=== PATIENT | male | born 1945 | race Two or more races ===

== ENCOUNTER 2018-02-17 19:22 | Observation (INO) | payer MEDICARE, OTHER ==
[~2018-02-17] VITALS: Ht 170.2 cm; Wt 68.0 kg
[2018-02-17] MEDS ORDERED: LORazepam 2MG/ML-1ML VIAL IV ONE (20:00)
[2018-02-17 20:30] LABS: Basophils # (auto) 0.1 uL; Basophils % (auto) 0.7 % (0.0-2.0); Eosinophils # (auto) 0.3 uL; Eosinophils % (auto) 3.6 % (0.0-7.0); Hematocrit 38.7 % (41.0-53.0); Hemoglobin 12.9 g/dL (13.5-17.5); Lymphocytes % (auto) 35.9 % (10.0-50.0); Mean Corpuscular Hemoglobin 31.2 pg (28.0-32.0); Mean Corpuscular Hgb Conc. 33.3 g/dL (32.0-36.0); Mean Corpuscular Volume 93.7 fL (80.0-100.0); Monocytes # (auto) 0.5 uL; Monocytes % (auto) 6.6 % (0.0-12.0); Neutrophils # (auto) 4.4 uL; Neutrophils % (auto) 53.2 % (37.0-80.0); Nucleated Red Blood Cells % 0.1 %; Platelet Count (auto) 219 10^3/uL (140-450); Red Blood Cells 4.13 10^6/uL (4.5-5.90); Red Cell Distribution Width 14.2 % (11.8-14.3); White Blood Cell 8.2 10^3/uL (4.4-10.8)
[2018-02-17 20:47] LABS: INR 0.94 (0.9-1.15); Partial Thromboplastin Time 25.7 sec (23.78-33.04); Prothrombin Time 10.1 sec (9.27-12.13)
[2018-02-17 20:52] LABS: Alanine Aminotransferase 18 U/L (16-61); Albumin 3.4 g/dL (3.4-5.0); Alkaline Phosphatase 65 U/L (45-117); Anion Gap 7 (5-15); Aspartate Aminotransferase 17 U/L (15-37); BUN/Creatinine Ratio 13.3; Bilirubin, Total 0.5 mg/dL (0.2-1.0); Blood Urea Nitrogen 15 mg/dL (7-18); Calcium 8.2 mg/dL (8.5-10.1); Carbon Dioxide 23 mmol/L (21-32); Chloride 111 mmol/L (98-107); GFR African American 82 mL/min; GFR Non-African American 67 mL/min; Glucose 98 mg/dL (74-106); Magnesium 2.5 mg/dL (1.6-2.6); Potassium 3.8 mmol/L (3.5-5.1); Sodium 141 mmol/L (136-145); Total Protein 7.7 g/dL (6.4-8.2)
[2018-02-17] MEDS ORDERED: DEXAMETHASONE SOD PHOS 10MG/1ML VIAL INJ IV ONE (22:15)
[2018-02-17 22:50] LABS: Urine Bacteria NONE SEEN /hpf (None Seen); Urine Blood Negative /uL (Negative); Urine Mucus FEW (None Seen); Urine Specific Gravity 1.019 (1.001-1.035); Urine WBC <1 /hpf (0 - 3)
[2018-02-18 01:04] VITALS: BP 105/78
== END 2018-02-18 00:17 | disposition short-term general hospital (02) | DRG 313 ==
LOC: ER 19:22 → OVERFLOW 19:23 → ER 02-18 00:17
PROVIDERS: ADMIT Emergency Medicine; ATTEND Emergency Medicine
DX: R07.89 Other chest pain (principal); M47.892 Other spondylosis, cervical region; M54.17 Radiculopathy, lumbosacral region; D49.6 Neoplasm of unspecified behavior of brain; I70.0 Atherosclerosis of aorta
CPT/HCPCS: 36415; 70450; 71045; 72125; 72131; 80053; 81001; 83735; 83880; 84443; 84484; 85025; 85379; 85610; 85730; 93005; 96374; 96375; 99285; G0378; J1100; J2060

== ENCOUNTER 2018-04-20 16:29 | Inpatient (IN) | payer MEDICARE, OTHER ==
[~2018-04-20] VITALS: Ht 160 cm; Wt 62.2 kg
[2018-04-20] MEDS ORDERED: SODIUM CHLORIDE 0.9% 1,000 ML IV ONE (17:36)
[2018-04-20] MEDS ORDERED: LEVOFLOXACIN 500MG 100 ML IV ONE (17:45)
[2018-04-20 17:52] LABS: Basophils # (auto) 0.1 uL; Basophils % (auto) 0.9 % (0.0-2.0); Eosinophils # (auto) 0 uL; Hemoglobin 11.8 g/dL (13.5-17.5); Lymphocytes % (auto) 7.7 % (10.0-50.0); Mean Corpuscular Hgb Conc. 32.8 g/dL (32.0-36.0); Mean Corpuscular Volume 94.5 fL (80.0-100.0); Monocytes # (auto) 0.3 uL; Monocytes % (auto) 2.4 % (0.0-12.0); Neutrophils # (auto) 11.4 uL; Platelet Count (auto) 214 10^3/uL (140-450); Red Blood Cells 3.81 10^6/uL (4.5-5.90); Red Cell Distribution Width 14.9 % (11.8-14.3); White Blood Cell 12.8 10^3/uL (4.4-10.8)
[2018-04-20 17:55] LABS: Alanine Aminotransferase 57 U/L (16-61); Anion Gap 9 (5-15); Aspartate Aminotransferase 54 U/L (15-37); BUN/Creatinine Ratio 24.6; Blood Urea Nitrogen 17 mg/dL (7-18); Carbon Dioxide 22 mmol/L (21-32); Chloride 111 mmol/L (98-107); GFR African American 144 mL/min; GFR Non-African American 119 mL/min; Glucose 108 mg/dL (74-106); Sodium 142 mmol/L (136-145)
[2018-04-20 18:00] LABS: Alkaline Phosphatase 100 U/L (45-117); Bilirubin, Total 0.4 mg/dL (0.2-1.0); Total Protein 6.6 g/dL (6.4-8.2)
[2018-04-20] MEDS ORDERED: VANCOMYCIN 1GM/250ML 250 ML IV ONE (18:30)
[2018-04-20] MEDS ORDERED: VANCOMYCIN PER PHARMACY 0 MG IV SCH (18:30)
[2018-04-20] MEDS ORDERED: PIPERACILLIN-TAZOB 3.375GM 100 ML IV ONE (18:30)
[2018-04-20] MEDS: SODIUM CHLORIDE 0.9% 1,000 ML IV SCH (18:38)
[2018-04-20] MEDS ORDERED: OSELTAMIVIR 75 MG CAP PO ONE (18:45)
[2018-04-20] MEDS ORDERED: ACETAMINOPHEN 500 MG TAB PO PRN (18:45)
[2018-04-20] MEDS ORDERED: TEMAZEPAM 15 MG CAP PO PRN (18:45)
[2018-04-20] MEDS ORDERED: NITROGLYCERIN 0.4 MG SL TAB SL PRN (18:45)
[2018-04-20] MEDS ORDERED: LORazepam 0.5 MG TAB PO PRN (18:45)
[2018-04-20] MEDS ORDERED: PROMETHAZINE HCL 25 MG/ML 1ML IV PRN (18:45)
[2018-04-20] MEDS ORDERED: LACTULOSE 20Gm/30ML SOLN PO PRN (18:45)
[2018-04-20] MEDS ORDERED: MORPHINE SULFATE 4 MG/ML SYR/VIAL IV PRN ×2 (18:45)
[2018-04-20] MEDS ORDERED: [UNRECOGNIZED DRUG - CODE] PO (18:54)
[2018-04-20] MEDS ORDERED: DEXA4TAB PO (18:54)
[2018-04-20] MEDS ORDERED: SULF400T11 PO (18:54)
[2018-04-20] MEDS ORDERED: TEMO20CA PO (18:54)
[2018-04-20] MEDS ORDERED: PRO10T PO (18:54)
[2018-04-20] MEDS ORDERED: GABA300C10 PO (18:54)
[2018-04-20] MEDS ORDERED: KEP500T PO (18:54)
[2018-04-20] MEDS ORDERED: SULFAMETHOX W/TRIMETH(800/160MG) DS TAB PO SCH ×2 (19:00→22:00)
[2018-04-20 19:49] VITALS: BP 117/75
[2018-04-20 20:59] VITALS: BP 117/75
[2018-04-20 22:00] VITALS: BP 117/75
[2018-04-20] MEDS ORDERED: GABAPENTIN 100 MG CAP PO SCH (22:00)
[2018-04-20] MEDS ORDERED: LEVETIRACETAM 500 MG TAB PO SCH (22:00)
[2018-04-20] MEDS: VANCOMYCIN 1GM/250ML 250 ML IV SCH (23:00)
[2018-04-20] MEDS: GABAPENTIN 300 MG CAP PO SCH (23:26)
[2018-04-20] MEDS: DEXAMETHASONE 4 MG TAB PO SCH (23:27)
[2018-04-20] MEDS: LEVETIRACETAM 500 MG TAB PO SCH (23:27)
[2018-04-21] MEDS: ALBUTEROL SULF 2.5 MG/0.5ML(0.5%) NEB SOLN NEB SCH ×4 (00:09→18:37)
[2018-04-21] MEDS: AZITHROMYCIN 500MG/ 250ML 250 ML IV SCH ×2 (02:00→09:52)
[2018-04-21] MEDS: PIPERACILLIN-TAZOB 3.375GM 100 ML IV SCH ×5 (04:05→23:56)
[2018-04-21 05:25] VITALS: BP 118/78
[2018-04-21 05:44] LABS: Basophils # (auto) 0 uL; Basophils % (auto) 0.4 % (0.0-2.0); Eosinophils # (auto) 0 uL; Hematocrit 35.3 % (41.0-53.0); Hemoglobin 11.8 g/dL (13.5-17.5); Lymphocytes # (auto) 0.4 uL; Lymphocytes % (auto) 3.6 % (10.0-50.0); Mean Corpuscular Hemoglobin 31.7 pg (28.0-32.0); Mean Corpuscular Hgb Conc. 33.3 g/dL (32.0-36.0); Mean Corpuscular Volume 95.2 fL (80.0-100.0); Monocytes # (auto) 0.2 uL; Monocytes % (auto) 1.4 % (0.0-12.0); Neutrophils # (auto) 11.5 uL; Neutrophils % (auto) 94.6 % (37.0-80.0); Platelet Count (auto) 202 10^3/uL (140-450); Red Cell Distribution Width 14.6 % (11.8-14.3); White Blood Cell 12.1 10^3/uL (4.4-10.8)
[2018-04-21 05:59] LABS: Albumin 1.9 g/dL (3.4-5.0); Potassium 3.9 mmol/L (3.5-5.1)
[2018-04-21 06:01] LABS: BUN/Creatinine Ratio 18.8
[2018-04-21 06:03] LABS: Bilirubin, Total 0.4 mg/dL (0.2-1.0); Total Protein 6.2 g/dL (6.4-8.2)
[2018-04-21] MEDS: SODIUM CHLORIDE 0.9% 1,000 ML IV SCH (07:58)
[2018-04-21 08:00] VITALS: BP 108/63
[2018-04-21 09:00] VITALS: BP 108/63
[2018-04-21] MEDS: TEMOZOLOMIDE 20 MG PO SCH (09:52)
[2018-04-21] MEDS: TEMOZOLOMIDE 100 MG PO SCH (09:52)
[2018-04-21] MEDS: PANTOPRAZOLE 40 MG TAB PO SCH (09:53)
[2018-04-21] MEDS: LEVETIRACETAM 500 MG TAB PO SCH ×2 (09:55→21:08)
[2018-04-21] MEDS: DEXAMETHASONE 4 MG TAB PO SCH ×2 (09:55→21:07)
[2018-04-21] MEDS ORDERED: OSELTAMIVIR 75 MG CAP PO SCH (10:00)
[2018-04-21 12:39] VITALS: BP 91/59
[2018-04-21] MEDS: VANCOMYCIN 1GM/250ML 250 ML IV SCH (16:40)
[2018-04-21] MEDS: HYDROcodone-ACET 5/325MG TAB PO PRN (16:48)
[2018-04-21 17:33] VITALS: BP 110/62
[2018-04-21] MEDS: GABAPENTIN 300 MG CAP PO SCH (21:06)
[2018-04-21 22:00] VITALS: BP 123/6
[2018-04-22] MEDS: ALBUTEROL SULF 2.5 MG/0.5ML(0.5%) NEB SOLN NEB SCH ×5 (00:22→23:32)
[2018-04-22 04:45] VITALS: BP 103/60
[2018-04-22] MEDS: PIPERACILLIN-TAZOB 3.375GM 100 ML IV SCH ×2 (05:48→14:18)
[2018-04-22] MEDS: HYDROcodone-ACET 5/325MG TAB PO PRN (05:54)
[2018-04-22 08:00] VITALS: BP 115/74
[2018-04-22 09:06] VITALS: BP 115/74
[2018-04-22] MEDS: DEXAMETHASONE 4 MG TAB PO SCH ×2 (09:33→21:48)
[2018-04-22] MEDS: TEMOZOLOMIDE 100 MG PO SCH (09:33)
[2018-04-22] MEDS: LEVETIRACETAM 500 MG TAB PO SCH ×2 (09:33→21:48)
[2018-04-22] MEDS: TEMOZOLOMIDE 20 MG PO SCH (09:33)
[2018-04-22] MEDS: PANTOPRAZOLE 40 MG TAB PO SCH (09:33)
[2018-04-22] MEDS: VANCOMYCIN 1GM/250ML 250 ML IV SCH (11:38)
[2018-04-22 14:04] VITALS: BP 109/54
[2018-04-22] MEDS ORDERED: LEVOFLOXACIN 750MG 150 ML IV ONE (16:00)
[2018-04-22 17:05] VITALS: BP 112/57
[2018-04-22 21:40] VITALS: BP 132/79
[2018-04-22] MEDS: GABAPENTIN 300 MG CAP PO SCH (21:48)
[2018-04-23 05:03] VITALS: BP 111/62
[2018-04-23] MEDS: ALBUTEROL SULF 2.5 MG/0.5ML(0.5%) NEB SOLN NEB SCH ×3 (06:00→19:40)
[2018-04-23 06:18] LABS: Basophils # (auto) 0 uL; Basophils % (auto) 0.1 % (0.0-2.0); Eosinophils # (auto) 0 uL; Hematocrit 35.9 % (41.0-53.0); Hemoglobin 11.8 g/dL (13.5-17.5); Lymphocytes # (auto) 0.6 uL; Lymphocytes % (auto) 4.3 % (10.0-50.0); Mean Corpuscular Hemoglobin 31.2 pg (28.0-32.0); Mean Corpuscular Hgb Conc. 32.9 g/dL (32.0-36.0); Monocytes # (auto) 0.4 uL; Monocytes % (auto) 2.5 % (0.0-12.0); Neutrophils # (auto) 13.5 uL; Neutrophils % (auto) 93.1 % (37.0-80.0); Platelet Count (auto) 235 10^3/uL (140-450); Red Blood Cells 3.77 10^6/uL (4.5-5.90); Red Cell Distribution Width 14.7 % (11.8-14.3); White Blood Cell 14.5 10^3/uL (4.4-10.8)
[2018-04-23 07:33] VITALS: BP 116/71
[2018-04-23 08:00] VITALS: BP 116/71
[2018-04-23] MEDS: LEVOFLOXACIN 750MG 150 ML IV SCH (09:40)
[2018-04-23] MEDS: DEXAMETHASONE 4 MG TAB PO SCH ×2 (09:40→23:04)
[2018-04-23] MEDS: PANTOPRAZOLE 40 MG TAB PO SCH (09:40)
[2018-04-23] MEDS: LEVETIRACETAM 500 MG TAB PO SCH ×2 (09:40→23:05)
[2018-04-23] MEDS ORDERED: VANCOMYCIN 1,250 MG in D5W 5% 250 ML IV SCH (11:00)
[2018-04-23] MEDS ORDERED: HYDROcodone-ACET 5/325MG TAB PO PRN (11:15)
[2018-04-23 11:32] VITALS: BP 118/76
[2018-04-23 16:50] VITALS: BP 106/63
[2018-04-23 22:00] VITALS: BP 113/72
[2018-04-23] MEDS: GABAPENTIN 300 MG CAP PO SCH (23:05)
[2018-04-23] MEDS: VANCOMYCIN 1,250 MG in SODIUM CHL 0.9% 250 ML IV SCH (23:05)
[2018-04-24] MEDS: ALBUTEROL SULF 2.5 MG/0.5ML(0.5%) NEB SOLN NEB SCH ×4 (00:01→18:49)
[2018-04-24 05:44] VITALS: BP 94/63
[2018-04-24 06:20] LABS: Hematocrit 36.4 % (41.0-53.0); Hemoglobin 12.1 g/dL (13.5-17.5); Mean Corpuscular Hemoglobin 31.5 pg (28.0-32.0); Mean Corpuscular Hgb Conc. 33.3 g/dL (32.0-36.0); Mean Corpuscular Volume 94.6 fL (80.0-100.0); Platelet Count (auto) 246 10^3/uL (140-450); Red Blood Cells 3.84 10^6/uL (4.5-5.90); Red Cell Distribution Width 15.1 % (11.8-14.3); White Blood Cell 13.5 10^3/uL (4.4-10.8)
[2018-04-24 06:32] LABS: Potassium 4.1 mmol/L (3.5-5.1)
[2018-04-24 06:37] LABS: BUN/Creatinine Ratio 27.5; Bilirubin, Total 0.3 mg/dL (0.2-1.0); Calcium 8.1 mg/dL (8.5-10.1); Total Protein 5.8 g/dL (6.4-8.2)
[2018-04-24 07:08] LABS: Basophils % (manual) 0 (0.0-2.0); Blast Cells 0; Eosinophils % (manual) 0 (0-7); Metamyelocytes % 0; Monocytes % (manual) 0 (0-12); Myelocytes % 0; Promyelocytes % 0; Reactive Lymphocytes 0
[2018-04-24 08:06] LABS: Band Neutrophils % (manual) 1; Lymphocytes % (manual) 3 (10.0-50.0)
[2018-04-24 08:18] VITALS: BP 120/76
[2018-04-24 09:01] VITALS: BP 120/76
[2018-04-24] MEDS: LEVOFLOXACIN 750MG 150 ML IV SCH (09:32)
[2018-04-24] MEDS: LEVETIRACETAM 500 MG TAB PO SCH ×2 (09:32→20:58)
[2018-04-24] MEDS: DEXAMETHASONE 4 MG TAB PO SCH ×2 (09:32→20:58)
[2018-04-24] MEDS: PANTOPRAZOLE 40 MG TAB PO SCH (09:33)
[2018-04-24] MEDS: VANCOMYCIN 1,250 MG in SODIUM CHL 0.9% 250 ML IV SCH ×2 (11:10→22:15)
[2018-04-24] MEDS: Glucerna Carbsteady SHAKE Vanilla 8oz PO SCH ×2 (12:00→18:00)
[2018-04-24 12:29] VITALS: BP 99/61
[2018-04-24 16:41] VITALS: BP 106/79
[2018-04-24] MEDS: Pro-Stat SF 30ml Vanilla PO SCH (18:00)
[2018-04-24] MEDS: GABAPENTIN 300 MG CAP PO SCH (20:59)
[2018-04-24 22:00] VITALS: BP 99/65
[2018-04-25] MEDS: ALBUTEROL SULF 2.5 MG/0.5ML(0.5%) NEB SOLN NEB SCH ×4 (00:25→18:58)
[2018-04-25 05:00] VITALS: BP 93/58
[2018-04-25 06:00] LABS: Hematocrit 39.2 % (41.0-53.0); Hemoglobin 12.8 g/dL (13.5-17.5); Mean Corpuscular Hemoglobin 30.7 pg (28.0-32.0); Mean Corpuscular Hgb Conc. 32.6 g/dL (32.0-36.0); Mean Corpuscular Volume 94.3 fL (80.0-100.0); Platelet Count (auto) 294 10^3/uL (140-450); Red Blood Cells 4.16 10^6/uL (4.5-5.90); Red Cell Distribution Width 15.3 % (11.8-14.3); White Blood Cell 13.1 10^3/uL (4.4-10.8)
[2018-04-25 06:22] LABS: Blast Cells 0; Eosinophils % (manual) 0 (0-7); Myelocytes % 0; Promyelocytes % 0; Reactive Lymphocytes 0
[2018-04-25 06:27] LABS: Albumin 2.1 g/dL (3.4-5.0); Calcium 8.2 mg/dL (8.5-10.1); Potassium 4.3 mmol/L (3.5-5.1)
[2018-04-25 06:30] LABS: BUN/Creatinine Ratio 28.8; Bilirubin, Total 0.4 mg/dL (0.2-1.0); Total Protein 5.9 g/dL (6.4-8.2)
[2018-04-25 07:49] LABS: Band Neutrophils % (manual) 2; Basophils % (manual) 1 (0.0-2.0); Lymphocytes % (manual) 6 (10.0-50.0); Metamyelocytes % 2; Monocytes % (manual) 2 (0-12)
[2018-04-25] MEDS: Glucerna Carbsteady SHAKE Vanilla 8oz PO SCH ×3 (08:00→18:01)
[2018-04-25] MEDS: Pro-Stat SF 30ml Vanilla PO SCH ×2 (08:00→18:01)
[2018-04-25] MEDS ORDERED: SODIUM CHLORIDE 0.9% 500 ML IV ONE (08:45)
[2018-04-25 09:09] VITALS: BP_SYST 79; BP_SYST 82; BP_DIAS 52; BP_DIAS 54
[2018-04-25 09:53] VITALS: BP 100/56
[2018-04-25] MEDS: LEVETIRACETAM 500 MG TAB PO SCH ×2 (10:17→21:14)
[2018-04-25] MEDS: PANTOPRAZOLE 40 MG TAB PO SCH (10:17)
[2018-04-25] MEDS: AZITHROMYCIN 250 MG TAB PO SCH (10:17)
[2018-04-25] MEDS: DEXAMETHASONE 4 MG TAB PO SCH ×2 (10:19→21:14)
[2018-04-25] MEDS: cefTRIAXone 1GM/50ML D5W 50 ML IV SCH (11:00)
[2018-04-25 13:15] VITALS: BP 114/62
[2018-04-25 16:57] VITALS: BP 113/76
[2018-04-25] MEDS: GABAPENTIN 300 MG CAP PO SCH (21:14)
[2018-04-25 22:00] VITALS: BP 104/64
[2018-04-26] MEDS: ALBUTEROL SULF 2.5 MG/0.5ML(0.5%) NEB SOLN NEB SCH ×4 (00:32→19:04)
[2018-04-26 05:12] VITALS: BP 107/65
[2018-04-26 05:35] LABS: Hematocrit 37.7 % (41.0-53.0); Hemoglobin 12.6 g/dL (13.5-17.5); Mean Corpuscular Hemoglobin 31.6 pg (28.0-32.0); Mean Corpuscular Hgb Conc. 33.5 g/dL (32.0-36.0); Mean Corpuscular Volume 94.4 fL (80.0-100.0); Platelet Count (auto) 305 10^3/uL (140-450); Red Blood Cells 3.99 10^6/uL (4.5-5.90); Red Cell Distribution Width 15.1 % (11.8-14.3); White Blood Cell 14.5 10^3/uL (4.4-10.8)
[2018-04-26 05:43] LABS: Basophils % (manual) 0 (0.0-2.0); Blast Cells 0; Eosinophils % (manual) 0 (0-7); Metamyelocytes % 0; Myelocytes % 0; Promyelocytes % 0; Reactive Lymphocytes 0
[2018-04-26 05:54] LABS: Potassium 4.3 mmol/L (3.5-5.1)
[2018-04-26 06:01] LABS: BUN/Creatinine Ratio 30.6; Bilirubin, Total 0.2 mg/dL (0.2-1.0); Calcium 7.9 mg/dL (8.5-10.1); Total Protein 5.6 g/dL (6.4-8.2)
[2018-04-26 06:24] LABS: Band Neutrophils % (manual) 2; Lymphocytes % (manual) 6 (10.0-50.0); Monocytes % (manual) 1 (0-12)
[2018-04-26] MEDS: Glucerna Carbsteady SHAKE Vanilla 8oz PO SCH ×3 (08:00→17:07)
[2018-04-26] MEDS: Pro-Stat SF 30ml Vanilla PO SCH ×2 (08:00→17:08)
[2018-04-26 08:39] VITALS: BP 93/58
[2018-04-26] MEDS: cefTRIAXone 1GM/50ML D5W 50 ML IV SCH (09:04)
[2018-04-26] MEDS: PANTOPRAZOLE 40 MG TAB PO SCH (09:46)
[2018-04-26] MEDS: LEVETIRACETAM 500 MG TAB PO SCH ×2 (09:46→21:09)
[2018-04-26] MEDS: DEXAMETHASONE 4 MG TAB PO SCH ×2 (09:46→21:08)
[2018-04-26] MEDS: AZITHROMYCIN 250 MG TAB PO SCH (09:47)
[2018-04-26 13:00] VITALS: BP 109/75
[2018-04-26] MEDS ORDERED: HYDROcodone-ACET 5/325MG TAB PO PRN (15:00)
[2018-04-26] MEDS ORDERED: IOHEXOL 300 MG/ML 100ML BOTTLE IJ ONE (15:11)
[2018-04-26 16:40] VITALS: BP 112/78
[2018-04-26] MEDS ORDERED: ENOXAPARIN SOD 60 MG/0.6 ML SYRINGE SC ONE (21:00)
[2018-04-26] MEDS: GABAPENTIN 300 MG CAP PO SCH (21:09)
[2018-04-26 22:32] VITALS: BP 100/68
[2018-04-27] MEDS: ALBUTEROL SULF 2.5 MG/0.5ML(0.5%) NEB SOLN NEB SCH ×4 (00:46→18:56)
[2018-04-27 05:29] VITALS: BP 91/56
[2018-04-27 05:31] LABS: Hematocrit 38.2 % (41.0-53.0); Hemoglobin 12.9 g/dL (13.5-17.5); Mean Corpuscular Hemoglobin 31.6 pg (28.0-32.0); Mean Corpuscular Hgb Conc. 33.8 g/dL (32.0-36.0); Mean Corpuscular Volume 93.6 fL (80.0-100.0); Platelet Count (auto) 339 10^3/uL (140-450); Red Blood Cells 4.08 10^6/uL (4.5-5.90); Red Cell Distribution Width 15.1 % (11.8-14.3); White Blood Cell 13.8 10^3/uL (4.4-10.8)
[2018-04-27 05:48] LABS: Calcium 7.9 mg/dL (8.5-10.1); Potassium 4.3 mmol/L (3.5-5.1)
[2018-04-27 05:52] LABS: BUN/Creatinine Ratio 33.9; Basophils % (manual) 0 (0.0-2.0); Blast Cells 0; Eosinophils % (manual) 0 (0-7); Metamyelocytes % 0; Myelocytes % 0; Promyelocytes % 0; Reactive Lymphocytes 0
[2018-04-27 06:40] LABS: Band Neutrophils % (manual) 3; Lymphocytes % (manual) 11 (10.0-50.0); Monocytes % (manual) 2 (0-12)
[2018-04-27] MEDS: Glucerna Carbsteady SHAKE Vanilla 8oz PO SCH ×3 (08:00→17:48)
[2018-04-27] MEDS: Pro-Stat SF 30ml Vanilla PO SCH ×2 (08:00→17:48)
[2018-04-27 09:00] VITALS: BP 92/63
[2018-04-27] MEDS: LEVETIRACETAM 500 MG TAB PO SCH ×2 (09:50→22:02)
[2018-04-27] MEDS: DEXAMETHASONE 4 MG TAB PO SCH ×2 (09:50→22:25)
[2018-04-27] MEDS: PANTOPRAZOLE 40 MG TAB PO SCH (09:51)
[2018-04-27] MEDS: APIXABAN 5 MG TAB PO SCH ×2 (09:51→22:02)
[2018-04-27] MEDS: cefTRIAXone 1GM/50ML D5W 50 ML IV SCH (09:53)
[2018-04-27] MEDS ORDERED: PANT40T PO (09:53)
[2018-04-27] MEDS ORDERED: LEVO750T64 PO (09:53)
[2018-04-27] MEDS ORDERED: APIX5TAB PO (09:53)
[2018-04-27] MEDS ORDERED: FLUC200T50 PO (09:53)
[2018-04-27] MEDS: AZITHROMYCIN 250 MG TAB PO SCH (09:53)
[2018-04-27] MEDS ORDERED: DEX4T PO (09:53)
[2018-04-27] MEDS ORDERED: ENOXAPARIN SOD 60 MG/0.6 ML SYRINGE SC SCH (10:00)
[2018-04-27 13:00] VITALS: BP 93/64
[2018-04-27] MEDS: FLUCONAZOLE 200MG/100ML 100 ML IV SCH (14:23)
[2018-04-27] MEDS: LEVOFLOXACIN 750MG 150 ML IV SCH (14:23)
[2018-04-27 16:42] VITALS: BP 93/56
[2018-04-27] MEDS: GABAPENTIN 300 MG CAP PO SCH (22:02)
[2018-04-27 22:13] VITALS: BP 103/68
[2018-04-28 05:44] VITALS: BP 102/63
[2018-04-28] MEDS: ALBUTEROL SULF 2.5 MG/0.5ML(0.5%) NEB SOLN NEB SCH ×4 (07:16→18:37)
[2018-04-28 08:00] VITALS: BP 97/63
[2018-04-28] MEDS: Pro-Stat SF 30ml Vanilla PO SCH ×2 (08:00→11:57)
[2018-04-28] MEDS: Glucerna Carbsteady SHAKE Vanilla 8oz PO SCH ×3 (08:00→18:10)
[2018-04-28] MEDS: FLUCONAZOLE 200MG/100ML 100 ML IV SCH (09:55)
[2018-04-28] MEDS: DEXAMETHASONE 4 MG TAB PO SCH (09:56)
[2018-04-28] MEDS: PANTOPRAZOLE 40 MG TAB PO SCH (09:56)
[2018-04-28] MEDS: APIXABAN 5 MG TAB PO SCH (09:57)
[2018-04-28] MEDS: LEVETIRACETAM 500 MG TAB PO SCH (09:58)
[2018-04-28] MEDS: LEVOFLOXACIN 750MG 150 ML IV SCH (11:56)
[2018-04-28 13:04] VITALS: BP 100/67
[2018-04-28 16:50] VITALS: BP 111/71
[2018-05-04] MEDS ORDERED: APIXABAN 5 MG TAB PO SCH (10:00)
== END 2018-04-28 21:20 | disposition home or self-care (01) | DRG 196 ==
LOC: ER 16:39 → TELE 18:42 → TELE-WESTW 19:50
PROVIDERS: ADMIT Internal Medicine; ATTEND Internal Medicine
DX: J84.10 Pulmonary fibrosis, unspecified (principal); J18.9 Pneumonia, unspecified organism; J96.00 Acute respiratory failure, unspecified whether with hypoxia or hypercapnia; E43 Unspecified severe protein-calorie malnutrition; I26.99 Other pulmonary embolism without acute cor pulmonale; C71.9 Malignant neoplasm of brain, unspecified; T45.1X5A Adverse effect of antineoplastic and immunosuppressive drugs, initial encounter; M17.0 Bilateral primary osteoarthritis of knee; R03.1 Nonspecific low blood-pressure reading; M47.892 Other spondylosis, cervical region; F32.9 Major depressive disorder, single episode, unspecified; M47.896 Other spondylosis, lumbar region; M48.061 Spinal stenosis, lumbar region without neurogenic claudication; D64.9 Anemia, unspecified; Y92.89 Other specified places as the place of occurrence of the external cause; R56.9 Unspecified convulsions; E83.51 Hypocalcemia; T38.0X5A Adverse effect of glucocorticoids and synthetic analogues, initial encounter; D63.8 Anemia in other chronic diseases classified elsewhere; Z85.841 Personal history of malignant neoplasm of brain; Z92.3 Personal history of irradiation; Z87.891 Personal history of nicotine dependence; Z68.24 Body mass index [BMI] 24.0-24.9, adult
CPT/HCPCS: 36415; 36600; 71045; 71046; 71260; 73560; 80048; 80053; 80202; 82805; 83036; 83605; 83735; 83880; 84132; 84484; 85007; 85025; 85027; 87040; 87070; 87205; 87804; 93005; 94640; 96365; 96375; A6257; G0378; J0696; J1450; J1956; J2543; J7060